=== PATIENT | male | born 1950 | race Caucasian/White ===

== ENCOUNTER 2018-10-06 09:34 | Day surgery (SDC) | payer OTHER, SELFPAY ==
[2018-10-02 14:58] VITALS: BMI 20.7
[2018-10-06 09:48] VITALS: BP 116/77; PULSE 67; RESP 16; TEMP 36.5; O2SAT 99; BMI 19.3
--- NOTE | 2018-10-06 10:30 | COLBX_PTH ---
PATIENT: WILLOW HERBERT LOC: EN U#:[id number] AGE/SX: 67/M ROOM: RE10/06/[address]: Dr. Uziel Melvin MD : 1950 BED: DIS: 10/06/2018 SPEC #: [id number] RECD: 10/06/18 12:40 STATUS: ELDER RAQUEL #: [id number] LEIDY: 10/06/18 10:[address]: Uziel Melvin DEPT: SURGICAL PATHOLOGY RECD BY: Rogers Ramos ENTERED: 10/06/18 13:22 SP TYPE: COLON BX OT DR: Dr. Bravo Borja DO Tissues: A - COLON BIOPSY B - Sigmoid colon biopsy Procedures: Trichrome (control) Special Stain Group II Surgery Specimen Level IV HEADER OPERATION: Colonoscopy (MAC) PRE-OP DIAGNOSIS: Diarrhea TISSUE SUBMITTED: A - Random colon biopsies, B - Sigmoid polyp biopsy MICROSCOPIC DIAGNOSIS A. Colon, random biopsy: Lymphocytic colitis. See comment. B. Sigmoid colon polyp, biopsy: Hyperplastic polyp. AM:berta 10/08/18 COMMENT A. Trichrome stain with matched control reveals mildly thickened basal plate, focally. MICROSCOPIC DESCRIPTION Slides are reviewed. GROSS DESCRIPTION A - Received in fixative is one container labeled with the patient's name and designated random colon biopsy. The specimen consists of multiple irregular fragments of light urbina soft tissue that in aggregate measure 2 x 0.6 x 0.1 cm. The specimen is totally submitted in one cassette. B - Received in fixative is one container labeled with the patient's name and designated sigmoid polyp biopsy. The specimen consists of one irregular fragment of light urbina soft tissue that measures 0.3 x 0.2 x 0.1 cm. The specimen is totally submitted in one cassette. / AM:berta 10/06/18 TC:3 CPT: 46323 x2, 18815
[2018-10-06 11:08] VITALS: BP 116/77; BP 86/56; PULSE 77; RESP 14; TEMP 36.2; O2SAT 97
--- NOTE | 2018-10-06 11:09 | OP.ENDO_ITS ---
Patient Name: Mryon Alvarado Procedure Date: 10/06/2018 10:34 AM Date of : 1950 Age: 67 Procedure: Colonoscopy Indications: Chronic diarrhea, Clinically significant diarrhea of unexplained origin Providers: Uziel Melvin MD Referring MD: Uziel Melvin MD Medicines: Monitored Anesthesia Care Patient Profile: This is a 67 year old male. Refer to note in patient chart for documentation of history and physical. Last Colonoscopy: more than 10 years ago. Complications: No immediate complications. Estimated blood loss: Minimal. Procedure: Pre-Anesthesia Assessment: - Prior to the procedure, a History and Physical was performed, and patient medications and allergies were reviewed. The patient's tolerance of previous anesthesia was also reviewed. The risks and benefits of the procedure and the sedation options and risks were discussed with the patient. All questions were answered, and informed consent was obtained. Prior Anticoagulants: The patient has taken no previous anticoagulant or antiplatelet agents. After reviewing the risks and benefits, the patient was deemed in satisfactory condition to undergo the procedure. After I obtained informed consent, the scope was passed under direct vision. Throughout the procedure, the patient's blood pressure, pulse, and oxygen saturations were monitored continuously. The colonoscope was introduced through the anus and advanced to the cecum, identified by appendiceal orifice and ileocecal valve. The colonoscopy was performed without difficulty. The patient tolerated the procedure well. The quality of the bowel preparation was good. Scope In: 10:44:43 AM Scope Withdrawal Time 0 hours 12 minutes 54 seconds Scope Out: 11:02:28 AM Total Procedure Duration Time 0 hours 17 minutes 45 seconds Findings: A polyp was found in the sigmoid colon. The polyp was hyperplastic. The polyp was removed with a cold biopsy forceps. Resection and retrieval were complete. The exam was otherwise without abnormality on direct and retroflexion views. Several biopsies were obtained with cold forceps for histology randomly in the entire colon. Many small and large-mouthed diverticula were found in the sigmoid colon. Impression: - One polyp in the sigmoid colon, removed with a cold biopsy forceps. Resected and retrieved. - The examination was otherwise normal on direct and retroflexion views. - Several biopsies were obtained in the entire colon. - Diverticulosis Recommendation: - Discharge patient to home. - Resume previous diet. - Continue present medications. - Physician's office will call you with pathology results and recommendations for when to repeat colonoscopy. - Repeat colonoscopy is recommended for surveillance. The colonoscopy date will be determined after pathology results from today's exam become available for review. Procedure Code(s): --- Professional --- 18682, Colonoscopy, flexible; with biopsy, single or multiple Diagnosis Code(s): --- Professional --- D12.5, Benign neoplasm of sigmoid colon K52.9, Noninfective gastroenteritis and colitis, unspecified R19.7, Diarrhea, unspecified CPT copyright 2017 [employer]. All rights reserved. The codes documented in this report are preliminary and upon loader operator/ground leader review may be revised to meet current compliance requirements. Uziel Melvin MD 10/06/2018 11:09:08 AM This report has been signed electronically. Number of Addenda: 0 Note Initiated On: 10/06/2018 10:34 AM
[2018-10-06 11:15] VITALS: BP 116/77; BP 91/67; PULSE 70; RESP 14; O2SAT 97
[2018-10-06 11:20] VITALS: BP 106/69; BP 116/77; PULSE 76; RESP 14; O2SAT 98
[2018-10-06 11:24] VITALS: BP 111/65; BP 116/77; PULSE 68; RESP 14; TEMP 36.3; O2SAT 100
[2018-10-06 11:44] VITALS: BP 116/77
== END 2018-10-06 11:58 | disposition home or self-care (01) ==
LOC: EN 09:37 → AC 09:37
PROVIDERS: Family Provider Family Medicine; PCP Family Medicine; Referring Provider Surgery; Visit Provider Surgery
PROC: 0DJD8ZZ Inspection of Lower Intestinal Tract, Via Natural or Artificial Opening Endoscopic (ICD-10-PCS; CPT 45378; principal; 2018-10-06 10:25)
DX: K52.832 Lymphocytic colitis (principal); D12.5 Benign neoplasm of sigmoid colon; K57.30 Diverticulosis of large intestine without perforation or abscess without bleeding; I48.91 Unspecified atrial fibrillation; Z85.828 Personal history of other malignant neoplasm of skin; Z86.73 Personal history of transient ischemic attack (TIA), and cerebral infarction without residual deficits; Z87.891 Personal history of nicotine dependence; Z79.899 Other long term (current) drug therapy
CPT/HCPCS: 45380; 88305; 88313; J7120